=== PATIENT | male | born 1975 | race Hispanic/Latino ===

== ENCOUNTER 2019-04-26 13:46 | Emergency (ER) | payer OTHER ==
[~2019-04-26 13:46] MED LIST: ALPR0.5T PO; METO5TAB87 PO; ONDA4TAB4 PO; PANT40TA PO; PAPA1TAB11 PO; PROM25TA7 PO
[2019-04-26] MEDS ORDERED: KETOROLAC TROMETHAMINE 30MG/ML IV ONE (14:52)
[2019-04-26] MEDS ORDERED: CEFTRIAXONE SODIUM 1 GM IVP ONE (14:54)
== END 2019-04-26 15:29 | disposition home or self-care (01) ==
LOC: EDH 13:46
DX: N41.0 Acute prostatitis (principal); F41.9 Anxiety disorder, unspecified; Z90.49 Acquired absence of other specified parts of digestive tract
CPT/HCPCS: 96374; 96375; 99284; J0696; J1885

== ENCOUNTER 2019-04-26 16:10 | Emergency (ER) | payer OTHER | END 2019-04-26 16:32 | disposition home or self-care (01) | LOC: EDH 16:10 | DX: F41.9 Anxiety disorder, unspecified (principal); Z90.49 Acquired absence of other specified parts of digestive tract ==

== ENCOUNTER 2020-03-12 08:03 | Emergency (ER) | payer SELFPAY ==
[2020-03-12] MEDS ORDERED: ONDANSETRON HCL 4 MG/2 ML VIAL ONE (09:02)
[2020-03-12] MEDS ORDERED: SODIUM CHLORIDE 0.9% 1000ML 1,000 ML IV ONE (09:02)
[2020-03-12] MEDS ORDERED: DICYCLOMINE HCL 10 MG/ML 2ML AMP IM ONE (10:00)
== END 2020-03-12 11:13 | disposition home or self-care (01) ==
LOC: EDH 08:03
DX: F14.10 Cocaine abuse, uncomplicated (principal); F41.9 Anxiety disorder, unspecified; Z88.6 Allergy status to analgesic agent; Z90.49 Acquired absence of other specified parts of digestive tract; Z72.0 Tobacco use
CPT/HCPCS: 36415; 80053; 80305; 81001; 85025; 93005; 96372; 96374; 99284; G0480 ×2; G0481; J0500; J2405; J7030

== ENCOUNTER 2020-03-17 08:33 | Emergency (ER) | payer SELFPAY ==
[2020-03-17] MEDS ORDERED: ONDANSETRON HCL 4 MG/2 ML VIAL ONE (09:32)
[2020-03-17 09:45] LABS: EOSINOPHILS % (AUTO) 1.7 % (0.0-8.0); HEMATOCRIT 45.2 % (42-54); LYMPHOCYTES % (AUTO) 13.3 % (21.0-51.0); MEAN CORPUSCULAR HEMOGLOBIN 32.3 pg (27.0-33.0); MEAN CORPUSCULAR HGB CONC 33.8 g/dL (32.0-36.0); MEAN CORPUSCULAR VOLUME 95.6 fL (79-99); MONOCYTES % (AUTO) 6.9 % (3.0-13.0); NEUTROPHILS % (AUTO) 76.7 % (40.0-77.0); PLATELET COUNT (AUTO) 361 K/uL (130-400); RED BLOOD CELL COUNT(AUTO) 4.73 MIL/uL (4.50-6.20); RED CELL DISTRIBUTION WIDTH 12.6 % (11.0-15.5); WHITE BLOOD COUNT (AUTO) 8.1 K/uL (4.8-10.8)
[2020-03-17 09:59] LABS: ACETAMINOPHEN < 1 mcg/mL (10-29); SALICYLATE < 2.8 mg/dL (2.8-20.0)
[2020-03-17 10:05] LABS: INR 0.89 (0.85-1.15); PARTIAL THROMBOPLASTIN TIME 26.5 SEC (26.3-35.5); PROTHROMBIN TIME 9.7 SEC (9.6-11.6)
[2020-03-17 10:27] LABS: CARBON DIOXIDE 31 mmol/L (21-32); CHLORIDE 105 mmol/L (101-111); GLOMERULAR FILTR. RATE CALC 86 mL/min (>60); GLUCOSE,RANDOM 79 mg/dL (70-105); POTASSIUM 3.3 mmol/L (3.5-5.1); SODIUM SERUM 145 mmol/L (136-145); UREA NITROGEN, BLOOD 11 mg/dL (7-18)
[2020-03-17 10:32] LABS: ALANINE AMINOTRANSFERASE 32 U/L (12-78); ALBUMIN 4.5 g/dL (3.5-5.0); AMYLASE 75 U/L (25-115); ASPARTATE AMINOTRANSFERASE 23 U/L (10-37); BILIRUBIN,TOTAL 0.5 mg/dL (0.2-1.0); LIPASE 192 U/L (114-286); TOTAL PROTEIN, SERUM 7.3 g/dL (6.0-8.3)
[2020-03-17 10:52] LABS: ALCOHOL, BLOOD < 3 mg/dL (0-10)
== END 2020-03-17 11:48 | disposition home or self-care (01) ==
LOC: EDH 08:33
DX: K29.00 Acute gastritis without bleeding (principal); K21.9 Gastro-esophageal reflux disease without esophagitis; K20.9 Esophagitis, unspecified; F12.10 Cannabis abuse, uncomplicated; R11.2 Nausea with vomiting, unspecified; F41.9 Anxiety disorder, unspecified; Z90.49 Acquired absence of other specified parts of digestive tract; Z88.6 Allergy status to analgesic agent
CPT/HCPCS: 36415; 71046; 80053; 82150; 83690; 84484; 85025; 85610; 85730; 87880; 93005; 96361; 96374; 96375; 99285; G0480 ×2; G0481; J2405